=== PATIENT | female | born 1950 | race Caucasian/White ===

== ENCOUNTER 2020-05-10 23:35 | Emergency (ER) | payer OTHER ==
[~2020-05-10] VITALS: Ht 167.6 cm; Wt 72.6 kg
[2020-05-10 23:49] LABS: BILIRUBIN Negative (Negative); BLOOD Negative (Negative); CLARITY Clear (Clear); COLOR Yellow (Yellow); GLUCOSE Negative (Negative); KETONE 1+ (Negative); LEUKO ESTERASE 1+ (Negative); NITRITE Negative (Negative); UROBILINOGEN 0.2 E.U./dl (0.0-1.0)
[2020-05-11] LABS: BACTERIA 1+
[2020-05-11] MEDS ORDERED: CIPRO500 MG PO (01:06)
== END 2020-05-11 03:13 | disposition home or self-care (01) ==
LOC: ED 23:35
PROVIDERS: Internal Medicine
DX: F03.90 Unspecified dementia, unspecified severity, without behavioral disturbance, psychotic disturbance, mood disturbance, and anxiety (principal); N39.0 Urinary tract infection, site not specified; Z04.1 Encounter for examination and observation following transport accident; V89.2XXA Person injured in unspecified motor-vehicle accident, traffic, initial encounter; Y93.89 Activity, other specified; Y92.488 Other paved roadways as the place of occurrence of the external cause; Y99.8 Other external cause status